=== PATIENT | male | born 1960 | race Caucasian/White ===

== ENCOUNTER → 2017-05-01 | Outpatient (CLI) | payer BC ==
[2017-05-01 15:44] LABS: EOSINOPHILS # (AUTO) 0.2 x10^3/uL (0.0-0.2); EOSINOPHILS % (AUTO) 4.9 % (0.9-2.9); HEMOGLOBIN 14.2 g/dL (13.5-18.0); LYMPHOCYTES # (AUTO) 1.4 X10^3/uL (1.3-2.9); MEAN CORPUSCULAR HEMOGLOBIN 32.5 pg (27.0-34.0); MEAN CORPUSCULAR HGB CONC 34.7 g/dL (33.0-35.0); MEAN CORPUSCULAR VOLUME 93.7 fL (80.0-100.0); MONOCYTES # (AUTO) 0.3 x10^3/uL (0.3-0.8); MONOCYTES % (AUTO) 7.1 % (0.0-13.0); NEUTROPHILS # (AUTO) 2.7 x10^3/uL (2.2-4.8); PLATELET COUNT 76 X10^3/uL (150.0-450.0); RED BLOOD COUNT 4.38 X10^6/uL (4.7-6.0); RED CELL DISTRIBUTION WIDTH 13.3 % (11.6-16.5); WHITE BLOOD COUNT 4.7 X10^3/uL (3.6-10.0)
[2017-05-01 16:00] LABS: ALBUMIN 3.2 g/dL (3.4-5.0); BILIRUBIN,DIRECT 0.25 mg/dL (0-0.2); TOTAL PROTEIN 6.3 g/dL (6.4-8.2)
== END ==
LOC: LAB 15:13
PROVIDERS: ATTEND Internal Medicine Gastroenterology
DX: K76.6 Portal hypertension (principal)
CPT/HCPCS: 36415; 80074; 80076; 82103; 82390; 82525; 82728; 83540; 83550; 84466; 85025; 86256; 86308

== ENCOUNTER 2017-05-03 11:27 | Day surgery (SDC) | payer BC ==
[2017-05-03] MEDS ORDERED: D5 LR 1000 ML 1,000 ML IV ONE (11:29)
[2017-05-03] MEDS ORDERED: DIPRIVAN VIAL 20 ML ONE ×2 (12:17→12:28)
[2017-05-03 13:02] VITALS: BP 119/66
[2017-05-03 13:55] LABS: IRON 147 ug/dL (50-175); TOTAL IRON BINDING CAPACITY 286 ug/dL (250-450)
== END 2017-05-03 13:00 | disposition home or self-care (01) ==
LOC: SURG1 11:27 → MERGE 11:27 → SURG1 13:00
PROVIDERS: ATTEND Internal Medicine Gastroenterology
PROC: 0DJ08ZZ Inspection of Upper Intestinal Tract, Via Natural or Artificial Opening Endoscopic (ICD-10-PCS; principal; 2017-05-03 14:30)
PROC: 0DB68ZX Excision of Stomach, Via Natural or Artificial Opening Endoscopic, Diagnostic (ICD-10-PCS; principal; 2017-05-03 14:30)
DX: R93.5 Abnormal findings on diagnostic imaging of other abdominal regions, including retroperitoneum (principal); R10.13 Epigastric pain; R10.84 Generalized abdominal pain; R14.0 Abdominal distension (gaseous); I85.00 Esophageal varices without bleeding; K31.89 Other diseases of stomach and duodenum
CPT/HCPCS: 36415; 82728; 83540; 83550; 85049; A4217; J3490; J7120

== ENCOUNTER → 2017-05-22 | Outpatient (CLI) | payer BC ==
[2017-05-14 11:24] VITALS: BP 119/66
== END ==
LOC: LAB 14:06
PROVIDERS: ATTEND Internal Medicine Gastroenterology
DX: K76.6 Portal hypertension (principal)
CPT/HCPCS: 36415; 81599; 85049

== ENCOUNTER → 2017-06-05 | Outpatient (CLI) | payer BC ==
[2017-05-14 11:24] VITALS: BP 119/66
[2017-06-05 16:20] LABS: ALANINE AMINOTRANSFERASE 41 Units/L (12-78); ALBUMIN 3.2 g/dL (3.4-5.0); ALKALINE PHOSPHATASE 102 Units/L (46-116); ASPARTATE AMINO TRANSFERASE 42 Units/L (15-37); BLOOD UREA NITROGEN 13 mg/dL (7-18); CALCIUM 9.1 mg/dL (8.5-10.1); CARBON DIOXIDE 28.1 mmol/L (21-32); CHLORIDE 110 mmol/L (98-107); SODIUM 144 mmol/L (136-145); TOTAL PROTEIN 6.4 g/dL (6.4-8.2); eGFR BLACK RACES > 60 (>60); eGFR NON BLACK RACES > 60 (>60)
== END ==
LOC: LAB 15:44
PROVIDERS: ATTEND Internal Medicine Gastroenterology
DX: K74.69 Other cirrhosis of liver (principal)
CPT/HCPCS: 36415; 80048; 80076; 85610

== ENCOUNTER → 2017-09-07 | Outpatient (CLI) | payer BC ==
[2017-05-14 11:24] VITALS: BP 119/66
--- NOTE | 2017-09-07 10:53 | US ---
HISTORY: Cirrhosis Study: Hepatic sonogram Comparison: 05/04/2017 Technique: Multiple grayscale sonographic images were obtained. Findings: The liver appeared normal in size and configuration and without cyst mass or biliary ductal dilatatio n. Limited Doppler evaluation was normal. No gallstones are present within the gallbladder. Gallbladd er wall thickness was normal. The common duct measured 4 mm. IMPRESSION: No significant abnormality identified Reported By:
== END ==
LOC: RAD 09:52
PROVIDERS: ATTEND Internal Medicine Gastroenterology
DX: K74.69 Other cirrhosis of liver (principal)
CPT/HCPCS: 76705